=== PATIENT | male | born 1985 | race African-American/Black ===

== ENCOUNTER 2023-09-13 10:32 | Emergency (ER) | payer MEDICAID ==
[~2023-09-13] VITALS: Ht 182.9 cm; Wt 95.3 kg
[2023-09-13] MEDS ORDERED: KETOROLAC TROMETHAMINE 15 MG/ML VIAL ONE (11:19)
[2023-09-13] MEDS ORDERED: LIDOCAINE 5% (PATCH) 1 EA PATCH TP ONE (11:20)
[2023-09-13] MEDS ORDERED: CYCLOBENZAPRINE 10 MG TABLET ONE (11:20)
[2023-09-13] MEDS: CYCLOBENZAPRINE 10 MG TABLET PO ONE (11:27)
[2023-09-13] MEDS: KETOROLAC TROMETHAMINE 15 MG/ML VIAL IM ONE (11:27)
[2023-09-13] MEDS: LIDOCAINE 5% (PATCH) 1 EA PATCH TP STA (11:27)
[2023-09-13] MEDS ORDERED: LIDO30AD10 TP (11:39)
[2023-09-13] MEDS ORDERED: CYCL5TAB PO (11:39)
[2023-09-13] MEDS ORDERED: IBUP-1955 PO (11:39)
[2023-09-13 11:56] VITALS: BP 121/66; TEMP 98; O2SAT 99
== END 2023-09-13 11:56 | disposition home or self-care (01) ==
LOC: ER 10:41
DX: M54.59 Other low back pain (principal); F10.10 Alcohol abuse, uncomplicated; Y90.9 Presence of alcohol in blood, level not specified
CPT/HCPCS: 99283; 96372; J1885